=== PATIENT | female | born 1975 | race Caucasian/White ===

== ENCOUNTER 2021-09-19 23:47 | Inpatient (IN) | payer SELFPAY ==
[2021-09-19 23:57] VITALS: BP 163/91; PULSE 81; RESP 18; TEMP 36.2; O2SAT 98; BMI 22.8
[2021-09-20] VITALS (7 sets, daily range): BP systolic 106–110; BP diastolic 65–84; PULSE 57–81; RESP 15–18; TEMP 36.7–37; O2SAT 96–98
--- NOTE | 2021-09-20 00:03 | W.ED.PSYCH ---
HPI - Psych General: Chief Complaint: Altered Mental Status Stated Complaint: MHE Time Seen by Provider: 09/20/21 00:03 History of Present Illness: HPI Narrative: Patient was brought in by law enforcement for concerns of abnormal behavior. I approached the table patient to talk to her about how she came to be in [facility]. Patient is from [place]. Patient states that she was going to grape picker a van but got lost. Patient stopped at a gas station and long [place] and was concerned about her behavior. Patient is frustrated during the interview process. Patient denies any routine medications or use of illicit substances. Associated symptoms: Deny homicidal ideation or suicidal ideation Review of Systems General: Reports: 10 or more systems reviewed and unremarkable except in HPI and below Psych: Denies: suicidal ideation or homicidal ideation Physical Exam Const: GENERAL APPEARANCE: well kempt HENMT: COMMON NORMALS: normocephalic and Normal external nose present HEAD & SCALP: normal to inspection and normocephalic NOSE: Normal external nose present Eye: GENERAL EYE: appearance normal, both eyes and all related structures Neck/C-Spine: COMMON NORMALS: full ROM Chest: COMMONS NORMALS: normal inspection of the chest Resp: COMMON NORMALS: normal respiratory effort EFFORT & INSPECTION: Yes able to speak in complete sentences Cardio: COMMON NORMALS: regular rate and regular rhythm RATE: regular rate RHYTHM: regular rhythm GI: COMMON NORMALS: non-tender : COMMON NORMALS: Yes no CVA tenderness BLADDER/KIDNEY EXAM: Yes no CVA tenderness Back/Pelvis: COMMON NORMALS: no CVA tenderness and thoracic and lumbar spine normal to inspection Extremity: NARRATIVE EXTREMITY EXAM: Bruising is noted to bilateral forearm of different stages. Neuro: COMMON NORMALS: moves all extremities Psych: COMMON NORMALS: denies suicidal ideation APPEARANCE: Yes well kempt ATTITUDE: Yes uncooperative, Yes evasive and Yes agitated SPEECH: Yes loud MOOD & AFFECT: Yes elevated mood THOUGHT PROCESS: disorganized THOUGHT CONTENT: No Suicidality present and No Homicidality present ATTENTION/CONCENTRATION: Yes attention grossly intact MEMORY/COGNITION: Yes memory grossly intact INSIGHT: Fair insight present (Psych) JUDGEMENT: Limited judgement present (Psych) Skin: COMMON NORMALS: no rashes or lesions noted GENERAL SKIN EXAM: no rashes or lesions noted Course ED course: 41, reviewed patient with Dr. Cosby who recommended patient be 96-hour hold for concerns of acute psychosis possibly due to substance use. Patient at this time is being uncooperative with care team. 0200, patient is sleeping, she has let nursing staff collect urine and blood work. , reviewed patient with Dr. Cosby who recommended I talk to Dr. Champion, psychiatrist, for admission to hospital. Vital Signs: Vital signs: Vital Signs Temperature 97.2 F L 09/19/21 23:57 Pulse Rate 81 09/19/21 23:57 Respiratory Rate 18 09/19/21 23:57 Blood Pressure 163/91 09/19/21 23:57 Pulse Oximetry 98 09/19/21 23:57 MDM - Psych MDM Narrative: Medical decision making narrative: Patient was brought in by law enforcement for concerns of erratic behavior. Patient reports that she was coming to [place] to grape picker a car but is evasive in answering most of her questions. Patient becomes frustrated with this provider and request to talk to only females. Patient is alert and oriented. Patient responds to questions. No signs of illness or injury is noted. Vital signs are normal. Differential diagnosis includes substance abuse, acute psychosis, manic episode. Laboratory values come back unremarkable except for some mild decrease in potassium at 3.3. Drug screen was no abnormal for cannabis. EtOH was normal. Patient was admitted to hospital for concerns of behavior and safety of self. Lab Data: Labs: Lab Results 09/19/21 09/19/21 09/20/21 01:30 01:30 00:55 WBC 9.5 10^3/uL 10^3/ uL (4.0-10.0) RBC 4.37 10^6/uL 10^6 /uL (4.1-5.3) Hgb 13.9 g/dL g/dL (11.5-15.3) Hct 40.9 % % (37.0-47.0) MCV 93.6 fl fl (81-99) MCH 31.8 pg pg (28.0-34.0) MCHC 34.0 g/dL g/dL (30.0-36.0) RDW 13.0 % % (12.1-15.1) Plt Count 278 10^3/cmm 10^3 /cmm (130-400) MPV 11.0 fL H fL (7.4-10.4) Neut % (Auto) 69.2 % % Lymph % (Auto) 20.6 % % [place] % (Auto) 7.7 % % Eos % (Auto) 1.6 % % Baso % (Auto) 0.6 % % Neut # (Auto) 6.60 10^3/uL 10^3 /uL (1.8-7.7) Lymph # (Auto) 2.0 10^3/uL 10^3/ uL (0.8-4.8) [place] # (Auto) 0.7 10^3/uL 10^3/ uL (0.2-0.9) Eos # (Auto) 0.2 10^3/uL 10^3/ uL (0.0-0.8) Baso # (Auto) 0.1 10^3/uL 10^3/ uL (0.0-0.1) Nucleated RBC % (a uto) 0 % % Nucleated RBCs # 0.0 /100WBC /100W BC Sodium 139 mmol/L mmol/L (136-145) Potassium 3.3 mmol/L L mmol /L (3.5-5.1) Chloride 103 mmol/L mmol/L (98-107) Carbon Dioxide 25 mmol/L mmol/L (22-29) Anion Gap 14.3 (5-19) BUN 6 mg/dL mg/dL (6-20) Creatinine 0.5 mg/dL mg/dL (0.5-0.9) GFR Calculation 132.2 mL/min H mL /min (90-130) Glucose 112 mg/dL mg/dL (65-115) Calculated Osmolal ity 286 mOsm/kg mOsm/ kg (285-295) Calcium 9.3 mg/dL mg/dL (8.5-10.5) Total Bilirubin 0.6 mg/dL mg/dL (0.15-1.2) AST 49 U/L H U/L (0-32) ALT 45 U/L H U/L (0-33) Alkaline Phosphata se 48 IU/L IU/L (35-105) Total Protein 6.3 g/dL L g/dL (6.6-8.7) Albumin 4.1 g/dL g/dL (3.5-5.2) Globulin 2.2 g/dL g/dL (1.3-4.6) HCG, Qual Negative (Negative) Salicylates < 0.3 mg/dL L mg/ dL (3-10) Urine Opiates Scre en Acetaminophen < 5.0 ug/mL L ug/ mL (10-30) Ur Barbiturates Sc reen Ur Phencyclidine S crn Ur Amphetamines Sc reen U Benzodiazepines Scrn Urine Cocaine Scre en U Marijuana (THC) Screen Ethyl Alcohol < 10 mg/dL mg/dL (0-10) 09/20/21 00:55 WBC RBC Hgb Hct MCV MCH MCHC RDW Plt Count MPV Neut % (Auto) Lymph % (Auto) [place] % (Auto) Eos % (Auto) Baso % (Auto) Neut # (Auto) Lymph # (Auto) [place] # (Auto) Eos # (Auto) Baso # (Auto) Nucleated RBC % (a uto) Nucleated RBCs # Sodium Potassium Chloride Carbon Dioxide Anion Gap BUN Creatinine GFR Calculation Glucose Calculated Osmolal ity Calcium Total Bilirubin AST ALT Alkaline Phosphata se Total Protein Albumin Globulin HCG, Qual Salicylates Urine Opiates Scre en Negative ng/mL ng /mL (Negative) Acetaminophen Ur Barbiturates Sc reen Negative ng/mL ng /mL (Negative) Ur Phencyclidine S crn Negative ng/mL ng /mL (Negative) Ur Amphetamines Sc reen Negative ng/mL ng /mL (Negative) U Benzodiazepines Scrn Negative ng/mL ng /mL (Negative) Urine Cocaine Scre en Negative ng/mL ng /mL (Negative) U Marijuana (THC) Screen Positive ng/mL H ng/mL (Negative) Ethyl Alcohol Coding Level of Care Code ED Road Oiling Truck Driver for Tiffanie Fwd Exam Comprehensive
[2021-09-20 01:05] LABS: HCG Qualitative Urine. Negative (Negative)
[2021-09-20 01:12] LABS: Amphetamines Screen Urine Negative (Negative); Barbiturates Screen Urine Negative (Negative); Benzodiazepines Screen Urine Negative (Negative); Cocaine Screen Urine Negative (Negative); Opiate Screen Urine Negative (Negative); PCP Screen Urine Negative (Negative); THC Screen Urine Positive (Negative)
[2021-09-20 01:54] LABS: Basophils # 0.1 10^3/uL (0.0-0.1); Basophils % 0.6 %; Eosinophils # 0.2 10^3/uL (0.0-0.8); Eosinophils % 1.6 %; Hematocrit 40.9 % (37.0-47.0); Hemoglobin 13.9 g/dL (11.5-15.3); Lymphocytes % 20.6 %; Mean Corpuscular Hemoglobin 31.8 pg (28.0-34.0); Mean Corpuscular Volume 93.6 fl (81-99); Monocytes # 0.7 10^3/uL (0.2-0.9); Monocytes % 7.7 %; Neutrophils % 69.2 %; Nucleated Red Blood Cells % 0 %; Platelet Count 278 10^3/cmm (130-400); Red Blood Count 4.37 10^6/uL (4.1-5.3); White Blood Count 9.5 10^3/uL (4.0-10.0)
[2021-09-20 02:06] LABS: Acetaminophen < 5.0 ug/mL (10-30); Alanine Aminotransferase 45 U/L (0-33); Albumin Level 4.1 g/dL (3.5-5.2); Alcohol Level < 10 mg/dL (0-10); Alkaline Phosphatase 48 IU/L (35-105); Anion Gap 14.3 (5-19); Aspartate Amino Transferase 49 U/L (0-32); Blood Urea Nitrogen 6 mg/dL (6-20); Calcium 9.3 mg/dL (8.5-10.5); Carbon Dioxide 25 mmol/L (22-29); Chloride 103 mmol/L (98-107); Globulin 2.2 g/dL (1.3-4.6); Glomerular Filtration Rate 132.2 mL/min (90-130); Glucose 112 mg/dL (65-115); Osmolality Calculated 286 mOsm/kg (285-295); Potassium 3.3 mmol/L (3.5-5.1); Salicylate < 0.3 mg/dL (3-10); Sodium 139 mmol/L (136-145); Total Bilirubin 0.6 mg/dL (0.15-1.2); Total Protein 6.3 g/dL (6.6-8.7)
[2021-09-20] MEDS: LORazepam 2 mg/mL INJ 1 mL IM (03:01)
[2021-09-20] MEDS: haloperidol inj 5 mg/mL INJ 1 mL IM (03:01)
--- NOTE | 2021-09-20 05:12 | PC.NURSE ---
Unable to assess at this time d/t sedation.
--- NOTE | 2021-09-20 05:37 | PC.NURSE ---
Patient arrived to unit sedated. 2 person assist to change into unit scrubs and get to bed. Unable to answer questions at this time. PER ED- Patient was brought in by law enforcement for concerns of abnormal behavior. I approached the table patient to talk to her about how she came to be in [facility]. Patient is from [place]. Patient states that she was going to pepper picker a van but got lost. Patient stopped at a gas station and [place] and was concerned about her behavior. Patient is frustrated during the interview process. Patient denies any routine medications or use of illicit substances. Associated symptoms: Deny homicidal ideation or suicidal ideation
--- NOTE | 2021-09-20 08:30 | PC.OT ---
OT evaluation orders received. OT evaluation held this date. RN states patient unable to participate due to sedation.
--- NOTE | 2021-09-20 12:10 | NPU.GN ---
[facility] Unit Group Topic:My Favorite Things General Mood of Group: Mary did not attend group today. Mary was sleeping.
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
[2021-09-20] MEDS: albuterol 8 gm MDI 2 PUFF INHALATION (21:03)
[2021-09-20] MEDS: cetylpyridinium Lozenge 1 EACH MUCOUS MEM (21:03)
[2021-09-21] MEDS: cetylpyridinium Lozenge 1 EACH MUCOUS MEM ×4 (00:33→12:28)
[2021-09-21 06:00] VITALS: BP 114/81; PULSE 80; RESP 18; TEMP 36.8; O2SAT 96
[2021-09-21] MEDS: OLANZapine 5 mg ODT PO (08:27)
[2021-09-21 10:30] VITALS: PULSE 87; RESP 18; O2SAT 99
[2021-09-21] MEDS: albuterol 8 gm MDI 2 PUFF INHALATION ×2 (10:30→19:35)
--- NOTE | 2021-09-21 12:29 | P.PN_ITS ---
Subjective NPU Subjective: Interval history: I discussed the patient's progress with the team. The social services counselor spoke with the patient's mother, and it sounds like the patient was doing okay until recently. The patient continues to have disorganized thinking and delusions. She says she slept okay. When asked her about her hoarseness, she said she was allergic to oil and gas products. She had a number of delusional ideas about this, including that she needed to cough out the bad gas. She is agitated and hostile about still being in the hospital, and asserting her rights to make her own decisions. She does not understand her psychiatric condition nor is she able to make good decisions on her own behalf. Mental Status Exam MSE Comments: I met with the patient in her room with the door open. She was laying in bed, hard to wake up, and was unkempt, dressed in hospital scrubs. She was agitated at times and sleepy at times. She did not have much capacity to cooperate with the exam and made very poor eye contact. She had psychomotor agitation at times. Speech was hoarse, halting and sometimes difficult to understand. Alert, oriented to [facility], [place], and 2020. She thought it was January and that she was in a assisted house. Attention and concentration were limited. Memory was quite impaired as revealed by the interview Mood is irritable. Affect is irritable. Thought process is illogical. Sometimes she speaks in word salad. Thought content: She denies auditory or visual hallucinations, and does not respond to unseen stimuli. She denies suicidal ideation or homicidal ideation. There are numerous delusions and paranoia noted. Insight and judgment are quite impaired by psychosis. Impulse control is impaired as well. Vitals/I&O/Wt Last Vital Signs Temp 98.2 F 09/21/21 06:00 Pulse 80 09/21/21 06:00 Resp 18 09/21/21 06:00 BP 114/81 09/21/21 06:00 Pulse Ox 96 09/21/21 06:00 Weight last 48 hrs Weight 68.039 kg Data NPU : 09/19/21 01:30 09/19/21 01:30 A&P Assessment and plan (1) Acute psychosis: Status: Acute Additional A&P Information This is a 46 year old female brought to the ED by law enforcement and admitted due to confusion and abnormal behavior. She has a history of apparent psychosis and at least 1 previous hospitalization. She denies any psychiatric condition. She also denies drug use and her mother knows of no drug use that she has had. RECOMMENDATION AND PLAN: 1. Evaluate the patient for medication. Patient did take as needed Zydis today. She does not see a need to take scheduled antipsychotic medication. 2. Continue every 15 minute checks for safety. 3. Encourage individual, group and milieu therapies. 4. Encourage sober living treatment after discharge at the highest level of care to which she is willing to commit. 5. Created discharge plan that supports her psychiatric and social needs, returns her to the community where it is best for her to live, and is coordinated with her family as appropriate. 6. She will likely need a 21-day hold. Involuntary Hold Information 96 Hour Hold: 96 Hour Involuntary Admission: No 96 Hour Hold Ending Date: 09/26/21 96 Hour Hold Ending Time: 00:30 Attestations NPU 2 Medical Necessity Statement*: Psychiatric hospitalization is medically necessary to prevent access to lethal means, to reevaluate medication, and to coordinate a safe discharge. Likely length of stay is 5 to 7 days. Coding Level of Care Code Acute Television Newscast Director for Tiffanie Benavidez Diagnoses Acute psychosis F23
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
[2021-09-21 13:25] VITALS: BP 112/70; PULSE 75; RESP 16; TEMP 36.7; O2SAT 100
[2021-09-21 15:23] LABS: Thyroid Stimulating Hormone 0.89 uIU/mL (0.27-4.20)
[2021-09-21 19:35] VITALS: PULSE 84; RESP 16; O2SAT 96
[2021-09-21 20:06] VITALS: BP 118/78; PULSE 61; RESP 16; O2SAT 100
[2021-09-22] MEDS: cetylpyridinium Lozenge 1 EACH MUCOUS MEM ×5 (00:23→20:23)
[2021-09-22 06:00] VITALS: BP 110/74; PULSE 66; RESP 16; O2SAT 99
[2021-09-22 09:29] VITALS: PULSE 77; RESP 20; O2SAT 99
[2021-09-22] MEDS: albuterol 8 gm MDI 2 PUFF INHALATION (09:29)
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
[2021-09-22 14:00] VITALS: BP 133/82; PULSE 73; RESP 17; TEMP 36.8; O2SAT 100
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
[2021-09-22] MEDS: blistex lip oint 7 gm Tube 1 APPLIC TOPICAL ×3 (18:53→21:25)
[2021-09-22 20:22] VITALS: BP 124/77; PULSE 65; RESP 17; TEMP 36.6; O2SAT 100
[2021-09-23] MEDS: acetaminophen 325 mg Tablet 650 MG PO (03:08)
[2021-09-23 06:00] VITALS: BP 118/80; PULSE 70; RESP 15; TEMP 37.2; O2SAT 98; BMI 22.8
[2021-09-23] MEDS: cetylpyridinium Lozenge 1 EACH MUCOUS MEM ×2 (11:13→13:35)
--- NOTE | 2021-09-23 13:23 | W.PM.NPUPNS ---
Subjective NPU Subjective: Interval history: Patient presents today continuing the narrative that she had with Dr. Champion with some oddity and affect and rambling conversation but denying any need for any medication at this time. She reports that she is eating and sleeping well and does not see a need for her being in the hospital. We discussed that she became concerned that she would benefit from an antipsychotic but at this time she was not open to a trial. Mental Status Exam MSE Comments: This is a slender white female in hospital scrubs medically grooming and eye contact. No abnormal movements except for mild visual retardation. Cooperative with exam and mild distress. Speech was normal rate and volume. Mood described as better affect appeared euthymic. Thought process organized. Thought content: Patient denied suicidal or homicidal ideation, no delusions reported but she seemed somewhat guarded, she denied auditory visualizations. Attention and concentration appear intact and memory was somewhat reliable but none formally tested easily oriented x3. Insight and impulse control is limited. Vitals/I&O/Wt Last Vital Signs Temp 99.0 F 09/23/21 06:00 Pulse 70 09/23/21 06:00 Resp 15 09/23/21 06:00 BP 118/80 09/23/21 06:00 Pulse Ox 98 09/23/21 06:00 Weight last 48 hrs Weight 68.039 kg Data NPU : 09/19/21 01:30 09/19/21 01:30 A&P Additional A&P Information (1) Acute psychosis: Additional A&P Information This is a 46 year old female brought to the ED by law enforcement and admitted due to confusion and abnormal behavior. She has a history of apparent psychosis and at least 1 previous psychiatric hospitalization. She denies any psychiatric condition. She also denies drug use and her mother knows of no drug use that she has had. She refuses to take psychiatric medication. RECOMMENDATION AND PLAN: 1. Evaluate the patient for medication. Patient did take as needed Zydis once, on 09/21/2021. She does not see a need to take scheduled antipsychotic medication. 2. Continue every 15 minute checks for safety. 3. Encourage individual, group and milieu therapies. 4. Encourage sober living treatment after discharge at the highest level of care to which she is willing to commit. 5. Created discharge plan that supports her psychiatric and social needs, returns her to the community where it is best for her to live, and is coordinated with her family as appropriate. 6. She will likely need a 21-day hold. Involuntary Hold Information 96 Hour Hold: 96 Hour Involuntary Admission: No 96 Hour Hold Ending Date: 09/26/21 96 Hour Hold Ending Time: 00:30 Attestations NPU Medical Necessity Statement*: Psychiatric hospitalization is medically necessary to prevent access to lethal means, to reevaluate medication, and to coordinate a safe discharge. Likely length of stay is 5 to 7 days. Coding Level of Care Code Acute Shearing Shed Worker for Tiffanie Benavidez
[2021-09-23 14:00] VITALS: BP 117/75; PULSE 69; RESP 17; TEMP 36.8; O2SAT 99
[2021-09-23 20:11] VITALS: BP 98/61; PULSE 73; RESP 16; TEMP 36.6; O2SAT 98
[2021-09-23 21:15] VITALS: PULSE 81; RESP 18; O2SAT 97
[2021-09-24] MEDS: cetylpyridinium Lozenge 1 EACH MUCOUS MEM ×3 (00:20→21:55)
[2021-09-24 06:00] VITALS: BP 120/82; PULSE 98; RESP 18; TEMP 36.6; O2SAT 98
[2021-09-24] MEDS: blistex lip oint 7 gm Tube 1 APPLIC TOPICAL (06:12)
--- NOTE | 2021-09-24 11:16 | NPU.GN ---
[facility] Group Topic:Triggers and Coping Skills General Mood of Group: Mary did attend and participate in group this morning . Mary shared some of her triggers and coping mechanisms with the group and this life underwriter. Mary was very talkative in group and a bit loud. This life underwriter asked her a few times if she can please listen to others instead of talking when they were sharing their triggers and coping mechanisms. Mary apologized and said that she is normally a loud person. Mary is ready to go home as she reported to this life underwriter.
[2021-09-24 14:00] VITALS: BP 131/69; PULSE 90; RESP 16; TEMP 36.6; O2SAT 99
--- NOTE | 2021-09-24 14:11 | PC.NURSE ---
PATIENT HAS CONTINUED TO APPROACH THE DESK SEVERAL TIMES REQUESTING VARIOUS THINGS: I NEED MY SPACE OPERATIONS OFFICER I NEED THE CONSTRUCTION CREW TO RETURN AND FOLLOW MY DIRECTIONS I USE A TOOL BOX WHEN I GO TO WORK WHAT DO YOU USE RANDOM BEHAVIORS, PICKING UP PHONE AND MAKING QUOTES REGARD THE CONSTITUTION, AND THAT WE ARE BREATHING HIV. WHO'S LYING TO MY CHILDREN TODAY, IN A DATA PROFILE iF YOU ARE WALKING AND STILL HAVE A HEARTBEAT MAYBE YOU REALLY ARE .
--- NOTE | 2021-09-24 16:58 | P.NPUPN_ITS ---
Subjective NPU Subjective: Interval history: Patient presents today continuing to speak nonsensical at times. She reported that she has been in previous psychiatric hospitals but reports more recently her doctor told her she had ADHD and PTSD. She reports that there for which he had does not bipolar disorder and she does not need to be hospitalized. She attempted to give an explanation of how she got to [place] as she reported she was going to [place] to help a friend. She cannot explain why on these long distance trips she has ended up hospitalized on multiple occasions. She is also ended up arrested. We discussed our concerns about what appears to be thought disorder and her need for a mood stabilizer which she currently would not agree to that direction of treatment. Mental Status Exam MSE Comments: This is a slender white female in hospital scrubs medically grooming and eye contact. No abnormal movements except for mild psychomotor agitation. Mostly cooperative with exam and mild distress. Speech was normal rate and volume. Mood described as better affect appeared irritable. Thought process organized. Thought content: Patient denied suicidal or homicidal ideation, no delusions reported but she seemed somewhat guarded with some odd thinking, she denied auditory or visual hallucinations. Attention and concentration appear intact and memory was unreliable but none formally tested. She was alert and oriented times person and place. Insight and judgment were impaired and impulse control is limited. Vitals/I&O/Wt Last Vital Signs Temp 97.9 F 09/24/21 14:00 Pulse 90 09/24/21 14:00 Resp 16 09/24/21 14:00 BP 131/69 09/24/21 14:00 Pulse Ox 99 09/24/21 14:00 Weight last 48 hrs Weight 68.039 kg Data NPU : 09/19/21 01:30 09/19/21 01:30 A&P Additional A&P Information (1) Acute psychosis: Additional A&P Information This is a 46 year old female brought to the ED by law enforcement and admitted due to confusion and abnormal behavior. She has a history of apparent psychosis and at least 1 previous psychiatric hospitalization. She denies any psychiatric condition. She also denies drug use and her mother knows of no drug use that she has had. She refuses to take psychiatric medication. RECOMMENDATION AND PLAN: 1. Evaluate the patient for medication. Patient did take as needed Zydis once, on 09/21/2021. She does not see a need to take scheduled antipsychotic medication. 2. Continue every 15 minute checks for safety. 3. Encourage individual, group and milieu therapies. 4. Encourage sober living treatment after discharge at the highest level of care to which she is willing to commit. 5. Created discharge plan that supports her psychiatric and social needs, returns her to the community where it is best for her to live, and is coordinated with her family as appropriate. 6. We will file a 21-day hold in the morning. Involuntary Hold Information 96 Hour Hold: 96 Hour Involuntary Admission: No 96 Hour Hold Ending Date: 09/26/21 96 Hour Hold Ending Time: 00:30 Attestations NPU Medical Necessity Statement*: Psychiatric hospitalization is medically necessary to prevent access to lethal means, to reevaluate medication, and to coordinate a safe discharge. Likely length of stay is 5 to 7 days. Coding Level of Care Code Acute Electrocardiogram Technician for Tiffanie Benavidez
[2021-09-24 19:20] VITALS: PULSE 86; RESP 18; O2SAT 98
[2021-09-24 21:21] VITALS: BP 107/77; PULSE 97; RESP 19; TEMP 36.4; O2SAT 97
--- NOTE | 2021-09-25 05:35 | PC.NURSE ---
Patient has been up most of night. Displaying manic behaviors. Is impulsive and intrusive at times. Patient is hyperverbal and has rambling speech noted. Mood fluctuates frequently form happy, to serious, to tearful, to irritable. Patient has refused PRN medications several times throughout the night despite staff's attempts to educate patient on them as well as the importance of sleep. Paces in [place] frequently. Staff monitoring patient. Only PRN utilized was Cepacol for complaint of sore throat.
[2021-09-25 05:53] VITALS: BP 121/78; PULSE 96; RESP 20; TEMP 36.4; O2SAT 99
--- NOTE | 2021-09-25 11:48 | NPU.GN ---
[facility] Group Topic:Mental Health Crossword Puzzle/ Psych Education General Mood of Group: Mary did attend group and participated in group activity. Mary was very talkative and a bit loud in group. She is exhibiting scattered thoughts that hinders her ability to hold a conversation without straying off to a different topic.
[2021-09-25 14:00] VITALS: BP 133/84; PULSE 94; RESP 18; TEMP 36.7; O2SAT 98
--- NOTE | 2021-09-25 17:54 | PC.NURSE ---
PATIENT HAS MADE MULTIPLE LENGTHY PHONE CALLS. ESCALATED VOICE, STATES SHE IS TALKING TO HER FATHER AND BROTHER. MY DAUGHTER IS 17 ARE YOU GOING TO LET HER BE RAPED LIKE ME. I DON'T CHANT. DO YOU PRAY TO IDOLS. DO YOU KNOW THE TRUTH. 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 INFORMED PATIENT PHONE CALLS NEEDS TO BE LIMITED TO 10 MINUTES AND IT WAS TIME FOR DINNER AND THE PHONES NEEDS TO BE SHUT OFF FOR MEALS. PATIENT PHONE CALL WAS EXCEEDING 25 MINUTES AND ADVISED HER I WAS SHUTTING THE PHONE OFF FOR MEALS. PHONES WERE TURNED OFF AND SHE BECAME ANGRY AND SLAMMED THE PHONE IN TO THE WALL.
--- NOTE | 2021-09-25 21:16 | P.NPUPN_ITS ---
Subjective NPU Subjective: Interval history: Patient presents today seemingly getting worse and not better in this controlled environment. She is now hyperverbal, focusing on questions of poisoning and will be the medication, what her people try to do to her, and at times making absolutely no sense of other times using words make sense but the comments having no context and the current conversation. She was extremely paranoid asking about this documentation writer's schooling in the past and asking if I had heard of some school in [place] to try to test me as to whether I was actually from [place] Mental Status Exam MSE Comments: This is a slender white female in hospital scrubs medically grooming and eye contact. No abnormal movements except for mild psychomotor agitation. Mostly cooperative with exam in mild to moderate distress. Speech was normal rate and volume with occasional increases as she gets frustrated. Mood described as better affect appeared irritable. Thought process organized but at other times disorganized. Thought content: Patient denied suicidal or homicidal ideation, no delusions reported but she seemed paranoid with some odd thinking, she denied auditory or visual hallucinations. Attention and concentration appear limited and memory was unreliable but none formally tested. She was alert and oriented times person and place. Insight and judgment were impaired and impulse control is limited. Vitals/I&O/Wt Last Vital Signs Temp 98.0 F 09/25/21 14:00 Pulse 94 09/25/21 14:00 Resp 18 09/25/21 14:00 BP 133/84 09/25/21 14:00 Pulse Ox 98 09/25/21 14:00 Data NPU : 09/19/21 01:30 09/19/21 01:30 A&P Additional A&P Information (1) Acute psychosis: Additional A&P Information This is a 46 year old female brought to the ED by law enforcement and admitted due to confusion and abnormal behavior. She has a history of apparent psychosis and at least 1 previous psychiatric hospitalization. She denies any psychiatric condition. She also denies drug use and her mother knows of no drug use that she has had. She refuses to take psychiatric medication. RECOMMENDATION AND PLAN: 1. Evaluate the patient for medication. Patient did take as needed Zydis once, on 09/21/2021. She does not see a need to take scheduled antipsychotic medication. 2. Continue every 15 minute checks for safety. 3. Encourage individual, group and milieu therapies. 4. Encourage sober living treatment after discharge at the highest level of care to which she is willing to commit. 5. Created discharge plan that supports her psychiatric and social needs, returns her to the community where it is best for her to live, and is coordinated with her family as appropriate. 6. 21-day hold filed. Involuntary Hold Information 96 Hour Hold: 96 Hour Involuntary Admission: No 96 Hour Hold Ending Date: 09/26/21 96 Hour Hold Ending Time: 00:30 Attestations NPU Medical Necessity Statement*: Psychiatric hospitalization is medically necessary to prevent access to lethal means, to reevaluate medication, and to coordinate a safe discharge. Likely length of stay is 7-10 days given her resistance to medication.. Coding Level of Care Code Acute It Security Architect for Tiffanie Benavidez
[2021-09-25 21:35] VITALS: BP 115/78; PULSE 86; RESP 16; TEMP 36.6; O2SAT 99
[2021-09-26] MEDS: cetylpyridinium Lozenge 1 EACH MUCOUS MEM ×2 (01:27→08:56)
[2021-09-26] MEDS: diphenhydrAMINE 50 mg/mL SDV 1mL IM (01:55)
[2021-09-26] MEDS: haloperidol inj 5 mg/mL INJ 1 mL IM (01:55)
--- NOTE | 2021-09-26 03:11 | PC.NURSE ---
At approximately 0120 nursing staff herd what sounded like a clapping noise coming from the [facility] [place] / day room area. There was no one observed on video monitoring in the [facility] day room at that time. A few seconds later there was a short ( three faint ) beeping noise followed by loud talking. As staff was exiting nurses station the call alarm in room 154 began beeping. Upon immediate investigation patient began loudly yelling at staff in a rambling manor about highways, [place], [place], [place], environmental degradation, her daughter, her vehicle and a myriad of other senseless topics. The more staff attempted to redirect / refocus the patient the louder and faster the patient yelled. Patient had not been observed sleeping for grater than 4hours and 45 minutes since 09/21/21. To spite efforts to deescalate patients verbal aggressiveness she continued to yell, not allowing any verbal communication from staff. Patient persisted in being uncooperative and inconsiderate of the sleep / rest needs of the other patients on the unit. Patient was offered PO medication to ease her psychosis / aggressiveness which was putting her at a high risk of harming herself or others. However patient stated that she would not take any of the poison you are trying to feed me . At which point it was explained to patient that she would need an IM injection if she was unable to stop yelling and rambling senselessly. Charge Nurse called Dr. Ambrosio obtaining order for Haldol 5mg IM and Benadryl 50mg IM now. Charge nurse requested that that aid call security and housekeeper manager. Upon arrival of Security and animal care supervisor, again patient was given the option of medication PO. Patient again denied request. At 01:55 patient was given 5mg Haldol IM in left deltoid and Benadryl 50 mg in right deltoid with minimal resistance. Patient continued to be loud and disruptive in unit. Patient was escorted using approved SAFE training techniques to room 170 where her noise level and actions would be less disruptive to unit. Patient requested glass of water that was obtained for her, which she promptly attempted to throw on the housekeeper manager. Patient was continually observed for the next 60 until she was resting peacefully.
[2021-09-26 06:00] VITALS: RESP 17
--- NOTE | 2021-09-26 11:38 | NPU.GN ---
[facility] Group Topic: Meditation Psych Education General Mood of Group: Mary did not attend group as she was in a fowl mood this morning and verbally rude to others this morning.
[2021-09-26 14:00] VITALS: BP 120/78; PULSE 67; RESP 18; TEMP 37; O2SAT 95
--- NOTE | 2021-09-26 17:12 | PC.NURSE ---
COURT APPOINTED STRIP MINE SUPERVISOR VISITED WITH MS. GARCIA THIS AFTERNOON.
--- NOTE | 2021-09-26 17:44 | W.PM.NPUPNS ---
Subjective NPU Subjective: Interval history: Fallon continues to struggle with psychosis and paranoia. She continues to pace the halls and make assertions from poisoning to other illegal operations. She did however seem to hear this director underwriter sales's assertion that without medication it is very likely she will be here for a long time. We once again discussed our concerns for bipolar disorder/schizoaffective disorder bipolar type and we discussed the risk benefits and alternatives of a trial of Invega and she appeared to understand and agreed proceed as is documented in this note. Mental Status Exam MSE Comments: This is a slender white female in hospital scrubs medically grooming and eye contact. No abnormal movements except for mild psychomotor agitation. Mostly cooperative with exam in mild to moderate distress. Speech was normal rate and volume with occasional increases as she gets frustrated. Mood described as fine affect appeared irritable. Thought process organized but at other times disorganized. Thought content: Patient denied suicidal or homicidal ideation, no delusions reported but she seemed paranoid with some odd thinking, she denied auditory or visual hallucinations. Attention and concentration appear limited and memory was unreliable but none formally tested. She was alert and oriented times person and place. Insight and judgment were impaired and impulse control is limited. Vitals/I&O/Wt Last Vital Signs Temp 98.6 F 09/26/21 14:00 Pulse 78 09/26/21 20:48 Resp 17 09/26/21 20:48 BP 118/79 09/26/21 20:48 Pulse Ox 100 09/26/21 20:48 Data NPU : 09/19/21 01:30 09/19/21 01:30 A&P Additional A&P Information (1) Acute psychosis: Additional A&P Information This is a 46 year old female brought to the ED by law enforcement and admitted due to confusion and abnormal behavior. She has a history of apparent psychosis and at least 1 previous psychiatric hospitalization. She denies any psychiatric condition. She also denies drug use and her mother knows of no drug use that she has had. She refuses to take psychiatric medication. RECOMMENDATION AND PLAN: 1. Evaluate the patient for medication. Start Invega 6 mg p.o. daily. 2. Continue every 15 minute checks for safety. 3. Encourage individual, group and milieu therapies. 4. Encourage sober living treatment after discharge at the highest level of care to which she is willing to commit. 5. Created discharge plan that supports her psychiatric and social needs, returns her to the community where it is best for her to live, and is coordinated with her family as appropriate. 6. 21-day hold filed. Involuntary Hold Information 96 Hour Hold: 96 Hour Involuntary Admission: No 96 Hour Hold Ending Date: 09/26/21 96 Hour Hold Ending Time: 00:30 Attestations NPU Medical Necessity Statement*: Psychiatric hospitalization is medically necessary to prevent access to lethal means, to reevaluate medication, and to coordinate a safe discharge. Likely length of stay is 7-10 days given her resistance to medication. Coding Level of Care Code Acute Leadership Program Associate for Tiffanie Benavidez
[2021-09-26 20:48] VITALS: BP 118/79; PULSE 78; RESP 17; O2SAT 100
[2021-09-27 06:00] VITALS: BP 106/89; PULSE 86; RESP 16; O2SAT 95
[2021-09-27] MEDS: paliperidone ER 6 mg Tablet PO (09:52)
[2021-09-27] MEDS: cetylpyridinium Lozenge 1 EACH MUCOUS MEM ×2 (10:48→20:18)
[2021-09-27] MEDS: blistex lip oint 7 gm Tube 1 APPLIC TOPICAL (10:48)
--- NOTE | 2021-09-27 12:20 | NPU.GN ---
[facility] Group Topic:Meditation/ Depression Bingo General Mood of Group: Mary did attend and participate in group today. Mary was very social and distracting at times with loud side bar conversations. Mary can not stay on topic and often strays off topic in one on one conversations or in group conversations and activities Mary is still very confused..
[2021-09-27 14:00] VITALS: BP 112/72; PULSE 74; RESP 18; TEMP 36.6; O2SAT 98
--- NOTE | 2021-09-27 17:02 | P.NPUPN_ITS ---
Subjective NPU Subjective: Interval history: Catheter presents today showing some improvement in her ability to make appoint but still not acknowledging the level of impairment that has been in play in her life. In her mind she should be back at work and does not identify that her thought disorder would make work and unrealistic undertaking at this point. She seemed to accept the point that was being made that her ability to argue about discharge is a reflection of the improvement that she has had since she started taking the medication less than 48 hours ago such that she has had 2 doses. But she seems very angry about taking the medication. Mental Status Exam MSE Comments: This is a slender white female in hospital scrubs medically grooming and eye contact. No abnormal movements except for mild psychomotor agitation. Mostly cooperative with exam in mild to moderate distress. Speech was normal rate and volume with occasional increases as she gets frustrated. Mood described as fine affect appeared irritable. Thought process more organized with moments of disorganization only when she is really frustrated. Thought content: Patient denied suicidal or homicidal ideation, no delusions reported but she seemed paranoid with some odd thinking, she denied auditory or visual hallucinations. Attention and concentration appear limited and memory was unreliable but none formally tested. She was alert and oriented times person and place. Insight and judgment were impaired and impulse control is limited. Vitals/I&O/Wt Last Vital Signs Temp 97.9 F 09/27/21 14:00 Pulse 74 09/27/21 14:00 Resp 18 09/27/21 14:00 BP 112/72 09/27/21 14:00 Pulse Ox 98 09/27/21 14:00 Data NPU : 09/19/21 01:30 09/19/21 01:30 A&P Additional A&P Information (1) Acute psychosis: Additional A&P Information This is a 46 year old female brought to the ED by law enforcement and admitted due to confusion and abnormal behavior. She has a history of apparent psychosis and at least 1 previous psychiatric hospitalization. She denies any psychiatric condition. She also denies drug use and her mother knows of no drug use that she has had. She refuses to take psychiatric medication. RECOMMENDATION AND PLAN: 1. Evaluate the patient for medication. Convert Invega to injection once 21- day hold granted 2. Continue every 15 minute checks for safety. 3. Encourage individual, group and milieu therapies. 4. Encourage sober living treatment after discharge at the highest level of care to which she is willing to commit. 5. Created discharge plan that supports her psychiatric and social needs, returns her to the community where it is best for her to live, and is coordinated with her family as appropriate. 6. 21-day hold hearing tomorrow. Involuntary Hold Information 96 Hour Hold: 96 Hour Involuntary Admission: No 96 Hour Hold Ending Date: 09/26/21 96 Hour Hold Ending Time: 00:30 Attestations NPU Medical Necessity Statement*: Psychiatric hospitalization is medically necessa ry to prevent access to lethal means, to reevaluate medication, and to coordinate a safe discharge. Likely length of stay is 7-10 days given her resistance to medication. Coding Level of Care Code Acute Engineering Professor for Tiffanie Benavidez
--- NOTE | 2021-09-27 21:45 | PC.NURSE ---
pt. was very irritable so staff decided not to bother her
--- NOTE | 2021-09-27 23:37 | PC.NURSE ---
Patient has been intrusive and verbally abusive to staff this evening. She continues to stay at the Nurse's station area and curse the staff calling us fucking bitches and assholes. At one point patient approached the glass window and threw a wet paper towel onto the Nurse's work area. Patient very difficult to re-direct. Patient told staff that she was going to call her mali grady people in [place] and have them come take care of us. Patient has made several threatening comments to staff this shift. Patient was also on the phone cursing and unknown person that she had called.
[2021-09-28 06:00] VITALS: RESP 19
[2021-09-28] MEDS: cetylpyridinium Lozenge 1 EACH MUCOUS MEM ×3 (07:03→19:23)
--- NOTE | 2021-09-28 07:11 | PC.NURSE ---
Patient reported to staff I've got blood in my ear. Panel Fitter noted two small specks of blood to patient's pillow. Patient noted using her fifth digit to scratch and dig into her ear. Client also reports a history of using cuetips to dig inside her ear canal. Patient advised to keep fingers and other foreign objects away from ear canal. MD notified. No new orders given. Continue to monitor patient.
[2021-09-28] MEDS: paliperidone ER 6 mg Tablet PO (08:30)
[2021-09-28 14:00] VITALS: BP 128/75; PULSE 84; RESP 18; TEMP 36.7; O2SAT 97
--- NOTE | 2021-09-28 14:09 | NPU.GN ---
[facility] Unit Group Topic:Dice Breaker Psych Education General Mood of Group: Mary did attend and participated in group. Patient was very loud and off topic kept interrupting the group. Patient was making others have anxiety and uneasy. Mary was making statements against the nursing staff and this technical document writer mentioned to patient that she can discuss her concerns with Jacob. Mary was rude a few times and this technical document writer thinking this technical document writer was suppose to take charge of all her concerns . This technical document writer asked the patient to leave the group room as she was upsetting others. Patient did leave with attitude.
--- NOTE | 2021-09-28 14:38 | P.NPUPN_ITS ---
Subjective NPU Subjective: Interval history: Patient presents today frustrated with having to stay in the hospital. She has a 21-day hold hearing today and endorses that she has a plan to fight for her freedom reporting that she does not need to be here and is not clear about whether she needs to take the medication though when she is trying to discharge she says she will take the medication. I discussed the different elements of what I would say on the stand and that these were just our concerns and not a personal attack. Mental Status Exam MSE Comments: This is a slender white female in hospital scrubs with adequate grooming and eye contact. No abnormal movements except for mild psychomotor retardation. Mostly cooperative with exam in mild distress. Speech was normal rate and volume with occasional increases as she gets frustrated. Mood described as good affect appeared irritable. Thought process more organized with moments of disorganization only when she is really frustrated. Thought content: Patient denied suicidal or homicidal ideation, no delusions reported but she seemed paranoid with some odd thinking, she denied auditory or visual hallucinations. Attention and concentration appear limited and memory was unreliable but none formally tested. She was alert and oriented times person and place. Insight and judgment were impaired and impulse control is limited. Vitals/I&O/Wt Last Vital Signs Temp 98.0 F 09/28/21 14:00 Pulse 84 09/28/21 14:00 Resp 18 09/28/21 14:00 BP 128/75 09/28/21 14:00 Pulse Ox 97 09/28/21 14:00 Data NPU : 09/19/21 01:30 09/19/21 01:30 A&P Additional A&P Information (1) Acute psychosis: Additional A&P Information This is a 46 year old female brought to the ED by law enforcement and admitted due to confusion and abnormal behavior. She has a history of apparent psychosis and at least 1 previous psychiatric hospitalization. She denies any psychiatric condition. She also denies drug use and her mother knows of no drug use that she has had. She refuses to take psychiatric medication. RECOMMENDATION AND PLAN: 1. Evaluate the patient for medication. Convert Invega to injection once 21- day hold granted 2. Continue every 15 minute checks for safety. 3. Encourage individual, group and milieu therapies. 4. Encourage sober living treatment after discharge at the highest level of care to which she is willing to commit. 5. Created discharge plan that supports her psychiatric and social needs, returns her to the community where it is best for her to live, and is coordinated with her family as appropriate. 6. 21-day hold hearing at 3:00. Involuntary Hold Information 96 Hour Hold: 96 Hour Involuntary Admission: No 96 Hour Hold Ending Date: 09/26/21 96 Hour Hold Ending Time: 00:30 Attestations NPU Medical Necessity Statement*: Psychiatric hospitalization is medically necessary to prevent access to lethal means, to reevaluate medication, and to coordinate a safe discharge. Likely length of stay is 7-10 days given her resistance to medication. Coding Level of Care Code Acute Hotel Valet Attendant for Tiffanie Benavidez
[2021-09-28 14:44] VITALS: PULSE 104; RESP 18; O2SAT 100
[2021-09-28 22:00] VITALS: RESP 16
--- NOTE | 2021-09-29 01:44 | PC.NURSE ---
Upon assessment patient standing in hallway for [email or web address]. Patient denied any complaints. She had poor eye contact and stood with arms crossed tight over her chest. Patient did come to the desk later and asked if she could help pass out the snacks because the staff was busy. Patient has been answering questions yes ma'am and no ma'am . There has been no cursing at staff this shift as of yet. Will continue to monitor and follow plan of care. q 15 min safety checks per protocol.
[2021-09-29] MEDS: cetylpyridinium Lozenge 1 EACH MUCOUS MEM ×4 (05:59→19:14)
[2021-09-29 06:00] VITALS: BP 105/73; PULSE 87; RESP 18; TEMP 36.7; O2SAT 97
[2021-09-29] MEDS: paliperidone ER 6 mg Tablet PO (08:20)
[2021-09-29 08:45] VITALS: PULSE 87; RESP 18; O2SAT 97
[2021-09-29] MEDS: hyDROXYzine 25 mg Capsule 50 MG PO (09:47)
--- NOTE | 2021-09-29 09:47 | PC.NURSE ---
vistaril prn Patient agitated with staff and family. states staff are not helping her and her familiy is useless. states she is not able to handle anything like the electric bill or her phone because we are not helpful. patient irratic in conversation. patient will jump from the phone bill to where she is going to stay with friends to the cost of living in [facility]. Vistaril 50mg given PO. will continue to monitor.
[2021-09-29 14:00] VITALS: BP 105/73; PULSE 87; RESP 18; TEMP 36.7; O2SAT 97
--- NOTE | 2021-09-29 16:49 | P.NPUPN_ITS ---
Subjective NPU Subjective: Interval history: Patient presents today continuing to have significant irritability about being here however she seemed to be having some more reasonable sense about her family and wellbeing a support when she is discharged reporting that she think she can go stay with her uncle. She did have an assessment possibly having the injection but seems to be a little more open to the idea. She reports he is eating okay and sleeping okay. Mental Status Exam MSE Comments: This is a slender white female in hospital scrubs with adequate grooming and eye contact. No abnormal movements except for mild psychomotor retardation. Mostly cooperative with exam in mild distress. Speech was normal rate and volume. Mood described as good affect appeared irritable. Thought process more organized with moments of disorganization only when she is really frustrated. Thought content: Patient denied suicidal or homicidal ideation, no delusions reported but she seemed paranoid with less odd thinking, she denied auditory or visual hallucinations. Attention and concentration appear improving and memory was more reliable but none formally tested. She was alert and oriented times person and place. Insight and judgment were impaired and impulse control is limited. Vitals/I&O/Wt Last Vital Signs Temp 98.0 F 09/29/21 14:00 Pulse 87 09/29/21 14:00 Resp 18 09/29/21 14:00 BP 105/73 09/29/21 14:00 Pulse Ox 97 09/29/21 14:00 Data NPU : 09/19/21 01:30 09/19/21 01:30 A&P Assessment and plan (1) Schizoaffective disorder, bipolar type: Status: Acute Additional A&P Information (1) Acute psychosis: Additional A&P Information This is a 46 year old female brought to the ED by law enforcement and admitted due to confusion and abnormal behavior. She has a history of apparent psychosis and at least 1 previous psychiatric hospitalization. She denies any psychiatric condition. She also denies drug use and her mother knows of no drug use that she has had. She continues to take the Invega and appears to have a bipolar disorder type I versus he is ORDERED bipolar type. RECOMMENDATION AND PLAN: 1. Evaluate the patient for medication. Convert Invega to injection in next 48 hours. 2. Continue every 15 minute checks for safety. 3. Encourage individual, group and milieu therapies. 4. Encourage sober living treatment after discharge at the highest level of care to which she is willing to commit. 5. Created discharge plan that supports her psychiatric and social needs, returns her to the community where it is best for her to live, and is coordinated with her family as appropriate. 6. 21-day hold granted. Involuntary Hold Information 96 Hour Hold: 96 Hour Involuntary Admission: No 96 Hour Hold Ending Date: 09/26/21 96 Hour Hold Ending Time: 00:30 Attestations NPU Medical Necessity Statement*: Psychiatric hospitalization is medically necessary to prevent access to lethal means, to reevaluate medication, and to coordinate a safe discharge. Likely length of stay is 7-10 days given her resistance to medication. Coding Level of Care Code Acute Cage Supervisor for Tiffanie Benavidez Diagnoses Schizoaffective disorder, bipolar type F25.0
[2021-09-29 22:00] VITALS: RESP 18
[2021-09-30 06:00] VITALS: BP 106/71; PULSE 90; RESP 18; TEMP 36.7; O2SAT 100
[2021-09-30] MEDS: paliperidone ER 6 mg Tablet PO (08:02)
[2021-09-30] MEDS: cetylpyridinium Lozenge 1 EACH MUCOUS MEM ×5 (08:02→20:19)
[2021-09-30 10:00] VITALS: PULSE 90; RESP 18; O2SAT 97
--- NOTE | 2021-09-30 12:30 | P.NPUPN_ITS ---
Subjective NPU Subjective: Interval history: Patient resents today reporting that if she left to go home, she could be there by this evening. This was part of an overall less irritable but more talkative version of the patient which she reported feeling less angry. She was more interactive with staff and patients. And she did not respond with anger when she was advised she would not be going home today or tomorrow. Mental Status Exam MSE Comments: This is a slender white female in hospital scrubs with adequate grooming and eye contact. No abnormal movements except for mild psychomotor retardation. Cooperative with exam in no acute distress. Speech was increased rate and normal volume, and somewhat pressured. Mood described as good affect appeared less irritable. Thought process more organized. Thought content: Patient denied suicidal or homicidal ideation, no delusions reported and none noted, she denied auditory or visual hallucinations. Attention and concentration appear improving and memory was more reliable but none formally tested. She was alert and oriented times person and place. Insight and judgment were impaired and impulse control is limited. Vitals/I&O/Wt Last Vital Signs Temp 98.1 F 09/30/21 06:00 Pulse 90 09/30/21 06:00 Resp 18 09/30/21 06:00 BP 106/71 09/30/21 06:00 Pulse Ox 100 09/30/21 06:00 Weight last 48 hrs Weight 68.039 kg Data NPU : 09/19/21 01:30 09/19/21 01:30 A&P Additional A&P Information (1) Schizoaffective disorder, bipolar type: Additional A&P Information (1) Acute psychosis: Additional A&P Information This is a 46 year old female brought to the ED by law enforcement and admitted due to confusion and abnormal behavior. She has a history of apparent psychosis and at least 1 previous psychiatric hospitalization. She denies any psychiatric condition. She also denies drug use and her mother knows of no drug use that she has had. She continues to take the Invega and appears to have a bipolar disorder type I versus he is ORDERED bipolar type. RECOMMENDATION AND PLAN: 1. Evaluate the patient for medication. Convert Invega to injection in next 48 hours. 2. Continue every 15 minute checks for safety. 3. Encourage individual, group and milieu therapies. 4. Encourage sober living treatment after discharge at the highest level of care to which she is willing to commit. 5. Created discharge plan that supports her psychiatric and social needs, returns her to the community where it is best for her to live, and is coordinated with her family as appropriate. 6. 21-day hold granted. Involuntary Hold Information 96 Hour Hold: 96 Hour Involuntary Admission: No 96 Hour Hold Ending Date: 09/26/21 96 Hour Hold Ending Time: 00:30 Attestations NPU Medical Necessity Statement*: Psychiatric hospitalization is medically necessary to prevent access to lethal means, to reevaluate medication, and to coordinate a safe discharge. Likely length of stay is 7-10 days given her resistance to medication. Coding Level of Care Code Acute Client Account Representative for Tiffanie Benavidez
[2021-09-30] MEDS: blistex lip oint 7 gm Tube 1 APPLIC TOPICAL (12:41)
[2021-09-30 14:00] VITALS: BP 97/65; PULSE 92; RESP 18; TEMP 36.6; O2SAT 96
[2021-09-30 20:59] VITALS: BP 118/82; PULSE 93; RESP 16; TEMP 37.2; O2SAT 100
--- NOTE | 2021-09-30 23:43 | PC.NURSE ---
Patient came to nurses station requesting her Invega 6 mg PO be lowered to 3mg because it is making me too tired and sluggish, it is also making me throw up and wet myself . I told her I would note it for the doctor.
--- NOTE | 2021-09-30 23:55 | PC.NURSE ---
Patient again at nursing station requesting Pepto bismol and to be sent to the Emergency Department because I have food poisoning . Then began ranting about how she is not Bi-polar because she has been diagnosed with P.Brandon.Aisha. and A.MelloHMitzi. by a forensic therapist . Then followed up with additional ranting about the law suits that her woodwind instruments inspector will file tomorrow when she calls him. Then went on to yell about how her toilet is dirty and her door knobs have not been wiped down of which she plans to shameka about that as well.
[2021-10-01 06:00] VITALS: BP 104/71; PULSE 83; RESP 17; TEMP 36.7; O2SAT 99
[2021-10-01] MEDS: paliperidone ER 6 mg Tablet PO (08:06)
--- NOTE | 2021-10-01 11:50 | NPU.GN ---
[facility] Topic:Stressors Psych Education Worksheet General Mood of Group: Mary did attend group therapy this morning. She participated with others in the group and shared experiences with others in the group and this medical writer. Mary began to discuss how horrible some staff were and this medical writer tried to reengage patient in group topic and suggested that if she has any concerns that she fill out a complaint form or address them with a staff member that can assist her. Mary got upset when she was informed that the services that this medical writer is offering others is out of her catchment. This medical writer suggested that the patient see what social work professor can help link her up with in the area she lives in in [place].
[2021-10-01] MEDS: cetylpyridinium Lozenge 1 EACH MUCOUS MEM (13:28)
[2021-10-01 14:00] VITALS: BP 98/63; PULSE 86; RESP 18; TEMP 36.7; O2SAT 100
--- NOTE | 2021-10-01 14:44 | W.PM.NPUPNS ---
Subjective NPU Subjective: Interval history: Patient presents today continue to focus on discharging home but being more open to medication adjustment. Most prominent and importantly she expressed openness to the Invega Sustenna injection. We discussed the risks, benefits and alternatives of starting the injection and she understood and agreed to proceed as is documented in this note. She continued to have rambling conversation and a hyperverbal presentation but she appeared to have a little bit improved capacity to consider alternatives to her thinking. She reports that she is eating okay and sleeping all right. Mental Status Exam MSE Comments: This is a slender white female in hospital scrubs with adequate grooming and eye contact. No abnormal movements except for mild psychomotor retardation. Cooperative with exam in no acute distress. Speech was increased rate and normal volume, and somewhat pressured. Mood described as good, affect appeared less irritable. Thought process more organized. Thought content: Patient denied suicidal or homicidal ideation, no delusions reported and none noted, she denied auditory or visual hallucinations. Attention and concentration appear improving and memory was more reliable but none formally tested. She was alert and oriented times person and place. Insight and judgment were limited, and impulse control is limited. Vitals/I&O/Wt Last Vital Signs Temp 98.1 F 10/01/21 06:00 Pulse 83 10/01/21 06:00 Resp 17 10/01/21 06:00 BP 104/71 10/01/21 06:00 Pulse Ox 99 10/01/21 06:00 Weight last 48 hrs Weight 68.039 kg Data NPU : 09/19/21 01:30 09/19/21 01:30 A&P Additional A&P Information (1) Schizoaffective disorder, bipolar type: Additional A&P Information (1) Acute psychosis: Additional A&P Information This is a 46 year old female brought to the ED by law enforcement and admitted due to confusion and abnormal behavior. She has a history of apparent psychosis and at least 1 previous psychiatric hospitalization. She denies any psychiatric condition. She also denies drug use and her mother knows of no drug use that she has had. She continues to take the Invega and appears to have a bipolar disorder type I versus schizoaffective disorder bipolar type. RECOMMENDATION AND PLAN: 1. Evaluate the patient for medication. Invega Sustenna 234 mg IM to the deltoid today. 2. Continue every 15 minute checks for safety. 3. Encourage individual, group and milieu therapies. 4. Encourage sober living treatment after discharge at the highest level of care to which she is willing to commit. 5. Created discharge plan that supports her psychiatric and social needs, returns her to the community where it is best for her to live, and is coordinated with her family as appropriate. 6. 21-day hold granted. Involuntary Hold Information 96 Hour Hold: 96 Hour Involuntary Admission: No 96 Hour Hold Ending Date: 09/26/21 96 Hour Hold Ending Time: 00:30 Attestations NPU Medical Necessity Statement*: Psychiatric hospitalization is medically necessary to prevent access to lethal means, to reevaluate medication, and to coordinate a safe discharge. Likely length of stay is 5-8 days. Coding Level of Care Code Acute Frame Bander for Tiffanie Benavidez
[2021-10-01] MEDS: paliperidone palmitate 234 mg Syringe IM (20:24)
[2021-10-01 20:49] VITALS: BP 108/69; PULSE 86; RESP 16; TEMP 36.7; O2SAT 97
[2021-10-02 05:56] VITALS: BP 109/40; PULSE 88; RESP 16; TEMP 36.8; O2SAT 99
[2021-10-02] MEDS: paliperidone ER 6 mg Tablet PO (08:04)
[2021-10-02] MEDS: cetylpyridinium Lozenge 1 EACH MUCOUS MEM (09:02)
--- NOTE | 2021-10-02 11:49 | NPU.GN ---
[facility] Topic:Grounding Thoughts, Coping Skills General Mood of Group: Mary did very well and attended group today. Mary was very social and in a group today, but still fluctuates with her moods and topics.
[2021-10-02 14:00] VITALS: BP 99/63; PULSE 78; RESP 17; TEMP 36.6; O2SAT 96
--- NOTE | 2021-10-02 14:20 | W.PM.NPUPNS ---
Subjective NPU Subjective: Interval history: Patient continues to show improvement in her irritability but continues to ramble long conversations with tedious details. She continues to have limited to no insight in relations to her charla. again facing issues of wanting to leave. We discussed the plan for watching her improvement and awaiting the next shot. We agreed to work with her family in the short term even though she reports wanting to go away from them in the [facility]. Mental Status Exam MSE Comments: This is a slender white female in hospital scrubs with adequate grooming and eye contact. No abnormal movements except for mild psychomotor retardation. Cooperative with exam in no acute distress. Speech was increased rate and normal volume, and somewhat pressured. Mood described as good, affect appeared less irritable. Thought process more organized. Thought content: Patient denied suicidal or homicidal ideation, no delusions reported and none noted, she denied auditory or visual hallucinations. Attention and concentration appear improving and memory was more reliable but none formally tested. She was alert and oriented times person and place. Insight and judgment were limited, and impulse control is limited. Vitals/I&O/Wt Last Vital Signs Temp 98.3 F 10/02/21 05:56 Pulse 88 10/02/21 05:56 Resp 16 10/02/21 05:56 BP 109/40 10/02/21 05:56 Pulse Ox 99 10/02/21 05:56 Data NPU : 09/19/21 01:30 09/19/21 01:30 A&P Additional A&P Information (1) Schizoaffective disorder, bipolar type: Additional A&P Information (1) Acute psychosis: Additional A&P Information This is a 46 year old female brought to the ED by law enforcement and admitted due to confusion and abnormal behavior. She has a history of apparent psychosis and at least 1 previous psychiatric hospitalization. She denies any psychiatric condition. She also denies drug use and her mother knows of no drug use that she has had. She continues to take the Invega and appears to have a bipolar disorder type I versus schizoaffective disorder bipolar type. RECOMMENDATION AND PLAN: 1. Evaluate the patient for medication. Invega Sustenna 234 mg IM 10/01/2021. 2. Continue every 15 minute checks for safety. 3. Encourage individual, group and milieu therapies. 4. Encourage sober living treatment after discharge at the highest level of care to which she is willing to commit. 5. Created discharge plan that supports her psychiatric and social needs, returns her to the community where it is best for her to live, and is coordinated with her family as appropriate. 6. 21-day hold granted. Involuntary Hold Information 96 Hour Hold: 96 Hour Involuntary Admission: No 96 Hour Hold Ending Date: 09/26/21 96 Hour Hold Ending Time: 00:30 Attestations NPU Medical Necessity Statement*: Psychiatric hospitalization is medically necessary to prevent access to lethal means, to reevaluate medication, and to coordinate a safe discharge. Likely length of stay is 4-7 days. Coding Level of Care Code Acute Process Description Writer for Tiffanie Benavidez
[2021-10-02 20:32] VITALS: BP 108/68; PULSE 84; RESP 17; O2SAT 97
[2021-10-03 06:00] VITALS: BP 106/71; PULSE 80; RESP 15; O2SAT 97
[2021-10-03] MEDS: paliperidone ER 6 mg Tablet PO (09:15)
--- NOTE | 2021-10-03 12:49 | NPU.GN ---
[facility] Topic: Self Care Bingo/ Crisis Plan Work Sheet General Mood of Group: Mary did attend and participate in group today. Her demeanour was good and he was social in group with this documentation writer and others. She is still having issues staying focused and not talking out and disturbing group. She is focused on the issues in her family as she often shares them with others in group. This documentation writer has redirected her many times to keep her on group topics.
[2021-10-03 14:00] VITALS: BP 101/71; PULSE 80; RESP 17; TEMP 36.9; O2SAT 100
--- NOTE | 2021-10-03 15:19 | W.PM.NPUPNS ---
Subjective NPU Subjective: Interval history: Patient presents today mostly unchanged. Continuing to have a clear improvement in her affect with diminished irritability but continuing to have some somewhat stream of consciousness speak where she tells into the stories that are connected by very unnecessary and tedious details. The pressure continues to diminish to some degree but still present. We discussed that she would get the second injection in a few days and we will take it from there. Mental Status Exam MSE Comments: This is a slender white female in hospital scrubs with adequate grooming and eye contact. No abnormal movements except for mild psychomotor retardation. Cooperative with exam in no acute distress. Speech was increased rate and normal volume, and somewhat pressured. Mood described as good, affect appeared less irritable. Thought process more organized. Thought content: Patient denied suicidal or homicidal ideation, no delusions reported and none noted, she denied auditory or visual hallucinations. Attention and concentration appear improving and memory was more reliable but none formally tested. She was alert and oriented times person and place. Insight and judgment were limited, and impulse control is limited. Vitals/I&O/Wt Last Vital Signs Temp 98.4 F 10/03/21 14:00 Pulse 80 10/03/21 14:00 Resp 17 10/03/21 14:00 BP 101/71 10/03/21 14:00 Pulse Ox 100 10/03/21 14:00 Data NPU : 09/19/21 01:30 09/19/21 01:30 A&P Additional A&P Information (1) Schizoaffective disorder, bipolar type: Additional A&P Information (1) Acute psychosis: Additional A&P Information This is a 46 year old female brought to the ED by law enforcement and admitted due to confusion and abnormal behavior. She has a history of apparent psychosis and at least 1 previous psychiatric hospitalization. She denies any psychiatric condition. She also denies drug use and her mother knows of no drug use that she has had. She continues to take the Invega and appears to have a bipolar disorder type I versus schizoaffective disorder bipolar type. RECOMMENDATION AND PLAN: 1. Evaluate the patient for medication. Invega Sustenna 234 mg IM 10/01/2021. 2. Continue every 15 minute checks for safety. 3. Encourage individual, group and milieu therapies. 4. Encourage sober living treatment after discharge at the highest level of care to which she is willing to commit. 5. Created discharge plan that supports her psychiatric and social needs, returns her to the community where it is best for her to live, and is coordinated with her family as appropriate. 6. 21-day hold granted. Involuntary Hold Information 96 Hour Hold: 96 Hour Involuntary Admission: No 96 Hour Hold Ending Date: 09/26/21 96 Hour Hold Ending Time: 00:30 Attestations NPU Medical Necessity Statement*: Psychiatric hospitalization is medically necessary to prevent access to lethal means, to reevaluate medication, and to coordinate a safe discharge. Likely length of stay is 3-6 days. Coding Level of Care Code Acute Obstetrics And Gynecology Professor for Tiffanie Benavidez
[2021-10-03 22:00] VITALS: BP 109/73; PULSE 84; RESP 17; O2SAT 98
[2021-10-04 06:00] VITALS: PULSE 71; RESP 16; O2SAT 97
[2021-10-04] MEDS: paliperidone ER 6 mg Tablet PO (08:04)
--- NOTE | 2021-10-04 12:29 | NPU.GN ---
[facility] Topic:Positive Thinking / Positive Affirmations General Mood of Group: Mary did attend and participate in group activity. Although she did not talk out of turn as much, but when she did discuss things they were always negative things. She has nothing positive to discuss with others. That is when this customs entry writer would intervene and turn the negative to a positive for the patient and the rest of the group.
[2021-10-04 13:57] VITALS: BP 109/69; PULSE 66; RESP 17; TEMP 37.1; O2SAT 97
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
[2021-10-04 20:37] VITALS: BP 120/79; PULSE 85; RESP 18; TEMP 37; O2SAT 98
[2021-10-05 06:00] VITALS: BP 112/73; PULSE 73; RESP 17; TEMP 36.5; O2SAT 99
[2021-10-05] MEDS: paliperidone ER 6 mg Tablet PO (08:49)
--- NOTE | 2021-10-05 10:34 | NPU.GN ---
[facility] Unit Group Topic: Good Secrets Vs. Bad Secrets Psycho Therapy General Mood of Group: Mary did attend and participate in group today. She was very loud and disruptive in group today with another female patient. They thought their behaviors were funny and feeding off each other This life underwriter redirected the patients at least 4 times to get back on track with group discussion and activity. This life underwriter mentioned to the patient that she would be removed from group if she continued with the behaviors during group. Mary blamed it on the coffee and sugar that she had with breakfast.
[2021-10-05 14:00] VITALS: BP 136/76; PULSE 87; RESP 17; TEMP 36.8; O2SAT 99
--- NOTE | 2021-10-05 16:43 | W.PM.NPUPNS ---
Subjective NPU Subjective: Interval history: Patient presents today with continued slow improvement. Today she did notice that forward to being less isolative and sulking about her situation. She was more positive and interactive with staff and other patients. She reports ongoing conversation with her family that she feels guilty positive results with her uncle most recently supposedly reporting that she could come and stay with him. We discussed the likely plan for her to get her injection first thing on Friday morning and if she continues to improve discharge at the beginning of the week. Mental Status Exam MSE Comments: This is a slender white female in hospital scrubs with adequate grooming and eye contact. No abnormal movements except for mild psychomotor retardation. Cooperative with exam in no acute distress. Speech was more normal rate and volume. Mood described as good, affect appeared more euthymic. Thought process more organized. Thought content: Patient denied suicidal or homicidal ideation, no delusions reported and none noted, she denied auditory or visual hallucinations. Attention and concentration appear improving and memory was more reliable but none formally tested. She was alert and oriented times person and place. Insight and judgment were limited, but improving and impulse control is limited. Vitals/I&O/Wt Last Vital Signs Temp 98.2 F 10/05/21 21:21 Pulse 82 10/05/21 21:21 Resp 18 10/05/21 21:21 BP 115/76 10/05/21 21:21 Pulse Ox 99 10/05/21 21:21 Data NPU : 09/19/21 01:30 09/19/21 01:30 A&P Additional A&P Information (1) Schizoaffective disorder, bipolar type: Additional A&P Information (1) Acute psychosis: Additional A&P Information This is a 46 year old female brought to the ED by law enforcement and admitted due to confusion and abnormal behavior. She has a history of apparent psychosis and at least 1 previous psychiatric hospitalization. She denies any psychiatric condition. She also denies drug use and her mother knows of no drug use that she has had. She continues to take the Invega and appears to have a bipolar disorder type I versus schizoaffective disorder bipolar type. RECOMMENDATION AND PLAN: 1. Evaluate the patient for medication. Invega Sustenna 156 mg IM deltoid 10/08/2021. 2. Continue every 15 minute checks for safety. 3. Encourage individual, group and milieu therapies. 4. Encourage sober living treatment after discharge at the highest level of care to which she is willing to commit. 5. Created discharge plan that supports her psychiatric and social needs, returns her to the community where it is best for her to live, and is coordinated with her family as appropriate. 6. 21-day hold granted. Involuntary Hold Information 96 Hour Hold: 96 Hour Involuntary Admission: No 96 Hour Hold Ending Date: 09/26/21 96 Hour Hold Ending Time: 00:30 Attestations NPU Medical Necessity Statement*: Psychiatric hospitalization is medically necessary to prevent access to lethal means, to reevaluate medication, and to coordinate a safe discharge. Likely length of stay is 3-6 days. Coding Level of Care Code Acute Office Rental Clerk for Tiffanie Benavidez
[2021-10-05 21:21] VITALS: BP 115/76; PULSE 82; RESP 18; TEMP 36.8; O2SAT 99
[2021-10-06 06:00] VITALS: BP 123/84; PULSE 85; RESP 18; TEMP 36.8; O2SAT 98
[2021-10-06] MEDS: paliperidone ER 6 mg Tablet PO (08:04)
[2021-10-06 14:00] VITALS: BP 105/52; PULSE 92; RESP 18; TEMP 36.2; O2SAT 97
--- NOTE | 2021-10-06 14:39 | W.PM.NPUPNS ---
Subjective NPU Subjective: Interval history: Patient presents today continuing to be focused on getting home to her children. However it is the second day in a row that she has been seen with a smile on her face at any point. She is seeming much less frustrated and irritable. We discussed the fact that she would get her injection on Friday. And that we would work with the treatment team her family to find an appropriate discharge at the beginning of the week. Mental Status Exam MSE Comments: This is a slender white female in hospital scrubs with adequate grooming and eye contact. No abnormal movements. Cooperative with exam in no acute distress. Speech was more normal rate and volume. Mood described as good, affect appeared more euthymic. Thought process more organized. Thought content: Patient denied suicidal or homicidal ideation, no delusions reported and none noted, she denied auditory or visual hallucinations. Attention and concentration appear improving and memory was more reliable but none formally tested. She was alert and oriented times person and place. Insight and judgment were limited, but improving and impulse control is limited. Vitals/I&O/Wt Last Vital Signs Temp 97.2 F L 10/06/21 14:00 Pulse 92 10/06/21 14:00 Resp 18 10/06/21 14:00 BP 105/52 10/06/21 14:00 Pulse Ox 97 10/06/21 14:00 Data NPU : 09/19/21 01:30 09/19/21 01:30 A&P Additional A&P Information (1) Schizoaffective disorder, bipolar type: Additional A&P Information (1) Acute psychosis: Additional A&P Information This is a 46 year old female brought to the ED by law enforcement and admitted due to confusion and abnormal behavior. She has a history of apparent psychosis and at least 1 previous psychiatric hospitalization. She denies any psychiatric condition. She also denies drug use and her mother knows of no drug use that she has had. She continues to take the Invega and appears to have a bipolar disorder type I versus schizoaffective disorder bipolar type. RECOMMENDATION AND PLAN: 1. Evaluate the patient for medication. Invega Sustenna 156 mg IM deltoid 10/08/2021. 2. Continue every 15 minute checks for safety. 3. Encourage individual, group and milieu therapies. 4. Encourage sober living treatment after discharge at the highest level of care to which she is willing to commit. 5. Created discharge plan that supports her psychiatric and social needs, returns her to the community where it is best for her to live, and is coordinated with her family as appropriate. 6. 21-day hold granted. Involuntary Hold Information 96 Hour Hold: 96 Hour Involuntary Admission: No 96 Hour Hold Ending Date: 09/26/21 96 Hour Hold Ending Time: 00:30 Attestations NPU Medical Necessity Statement*: Psychiatric hospitalization is medically necessary to prevent access to lethal means, to reevaluate medication, and to coordinate a safe discharge. Likely length of stay is 2-4 days. Coding Level of Care Code Acute Rattling Machine Tender for Tiffanie Benavidez
[2021-10-06 21:18] VITALS: BP 106/72; PULSE 86; RESP 17; TEMP 37; O2SAT 98
--- NOTE | 2021-10-07 01:58 | PC.NURSE ---
Patient up at start of shift. Cooperative, clear thought process, interactive with others. Denies AVH or SI/HI. Has been in bed resting with eyes closed throughout night. No signs of distress noted.
[2021-10-07 06:00] VITALS: BP 101/66; PULSE 86; RESP 15; TEMP 36.9; O2SAT 98; BMI 22.8
[2021-10-07] MEDS: paliperidone ER 6 mg Tablet PO (08:06)
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
[2021-10-07 14:00] VITALS: BP 101/72; PULSE 75; RESP 18; TEMP 35.9; O2SAT 100
[2021-10-07 20:23] VITALS: BP 103/62; PULSE 69; RESP 15; O2SAT 98
[2021-10-08 06:00] VITALS: BP 116/75; PULSE 99; RESP 17; O2SAT 99
[2021-10-08] MEDS: paliperidone ER 6 mg Tablet PO (08:00)
--- NOTE | 2021-10-08 12:24 | NPU.GN ---
[facility] NeuroPsych Unit Group Topic:Emotions General Mood of Group: Patient come to group on time, dressed appropriately in hospital scrubs. The patient was well groomed with good hygiene. The group discussed emotions and where we feel these emotions in our body. They were able to color coordinate the color to the emotion and color the specific emotion to the body part that they feel these emotions. Everyone shared in the group their specific emotions and where the emotion is felt on their body. There were some new patients in NPU from over the weekend. It was discussed with the group what 96 hour hold and 21 day holds were. We spoke about self admitting. We also spoke about [facility]'s Behavioral Health Care and the importance of after care. Patients were able to ask questions about [facility] Behavioral health and about NPU.
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
[2021-10-08 14:00] VITALS: RESP 17
[2021-10-08] MEDS: paliperidone palmitate 156 mg Syringe IM (15:47)
--- NOTE | 2021-10-08 15:47 | PC.NURSE ---
GRACIELA SUSTENNA 156 MG GIVEN IM ORDERED BY PHYSICIAN. PT EDUCATED ON MED GIVEN & VERBALIZED UNDERSTANDING. INJECTION GIVEN IN LEFT DELTOID, WILL CONT TO MONITOR INJECTION SITE FOR ANY REDNESS, SWELLING, OR IRRITATION LOT [id number] EXP 10/2022
[2021-10-08 20:16] VITALS: BP 99/56; PULSE 76; RESP 15; TEMP 36.7; O2SAT 97
[2021-10-09 06:00] VITALS: BP 110/68; PULSE 73; RESP 16; TEMP 37; O2SAT 99
[2021-10-09] MEDS: paliperidone ER 6 mg Tablet PO (08:06)
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
[2021-10-09 10:40] VITALS: BP 110/68; PULSE 73; RESP 16; TEMP 37; O2SAT 99
== END 2021-10-09 11:41 | disposition home or self-care (01) | DRG 885 ==
LOC: ER 09-20 01:19 → NP 09-20 02:41
PROVIDERS: Emergency Medicine; Admitting Provider Psychiatry & Neurology Child & Adolescent Psychiatry; Emergency Provider Nurse Practitioner Family; Visit Provider Psychiatry & Neurology Psychiatry
DX: F25.0 Schizoaffective disorder, bipolar type (principal)
CPT/HCPCS: 36415; 80053; 80306; 80307; 81025; 84443; 85025; 94640; 96372; 97150; 97165; 99285; J1200; J1630; J2060; J3535